=== PATIENT | female | born 1995 | race American Indian/Alaskan Native ===

== ENCOUNTER 2021-05-17 12:32 | Outpatient (CLI) | payer OTHER ==
--- NOTE | 2021-05-17 14:08 | Ultrasound Report ---
ULTRASOUND OBSTETRIC LIMITED ULTRASOUND BIOPHYSICAL PROFILE INDICATION / CLINICAL INFORMATION: non reactive nst in office. COMPARISON: None available. FINDINGS: BREATHING MOVEMENT = 2 GROSS BODY MOVEMENT = 2 TONE = 2 QUALITATIVE AMNIOTIC FLUID VOLUME = 2 TOTAL BIOPHYSICAL SCORE = 8/8 HEART RATE (beats per minute): 125 AMNIOTIC FLUID INDEX (cm) = 6.6 PRESENTATION: Cephalic. ADDITIONAL FINDINGS: None. IMPRESSION: 1. Biophysical Score = 8/8 2. Borderline decreased amniotic fluid index of 6.6 cm Signer Name: Skip Mcdonald MD Signed: 05/17/2021 2:04 PM Workstation Name: [email or web address] ([facility])[id number]
== END 2021-05-17 14:53 | disposition home or self-care (01) ==
LOC: TRG 12:32 → APU 12:34 → TRG 14:53
PROVIDERS: ATTEND Obstetrics & Gynecology
DX: Z34.93 Encounter for supervision of normal pregnancy, unspecified, third trimester (principal); Z3A.40 40 weeks gestation of pregnancy
CPT/HCPCS: 76815; 76819

== ENCOUNTER 2021-05-19 12:02 | Inpatient (IN) | payer OTHER ==
--- NOTE | 2021-05-19 13:18 | Ultrasound Report ---
ULTRASOUND OBSTETRIC LIMITED INDICATION / CLINICAL INFORMATION: JOE. Clinical Gestational Age (GA) in weeks, days: 40, 5 TECHNIQUE: Transabdominal. COMPARISON: Ultrasound dated 05/17/21 FINDINGS: HEART RATE (beats per minute): 106 AMNIOTIC FLUID INDEX (cm) = 4.8 (normal = 7-24 cm) PRESENTATION: Cephalic. ADDITIONAL FINDINGS: None. IMPRESSION: 1. Below normal amniotic fluid index of 4.8 cm, previously 6.6 cm. Signer Name: Lili Cifuentes MD Signed: 05/19/2021 1:13 PM Workstation Name: [id number]
[2021-05-19] MEDS ORDERED: ePHEDrine SULFATE 50 MG/1 ML INJ IV PRN (14:23)
[2021-05-19] MEDS ORDERED: LOPERAMIDE 2 MG CAP PO PRN (14:23)
[2021-05-19] MEDS ORDERED: LIDOCAINE (2%) 20 MG/1 ML VIAL 20 ML MDV INFILTRATI ONE (14:23)
[2021-05-19] MEDS ORDERED: fentaNYL 100 MCG/2 ML INJ IV PRN (14:23)
[2021-05-19] MEDS ORDERED: miSOPROStol 200 MCG TAB PR PRN (14:23)
[2021-05-19] MEDS ORDERED: TERBUTALINE 1 MG/1 ML INJ SUB-Q PRN (14:23)
[2021-05-19] MEDS ORDERED: NalbUPHINE 10 MG/1 ML INJ IV PRN (14:23)
[2021-05-19] MEDS ORDERED: OXYTOCIN 10 UNIT/1 ML INJ IM PRN (14:23)
[2021-05-19] MEDS ORDERED: ACETAMINOPHEN 325 MG TAB PO PRN (14:23)
[2021-05-19] MEDS ORDERED: MINERAL OIL 30 ML ORAL LIQD PO PRN (14:23)
[2021-05-19] MEDS ORDERED: METHYLERGONOVINE MALEATE 0.2 MG/ML VIAL IM PRN (14:23)
[2021-05-19] MEDS ORDERED: ONDANSETRON 4 MG/2 ML INJ IV PRN (14:23)
[2021-05-19] MEDS ORDERED: CARBOPROST TROMETHAMINE 250 MCG/1 ML INJ IM PRN (14:23)
[2021-05-19] MEDS ORDERED: BUTORPHANOL 2 MG/1 ML INJ IV PRN (14:23)
[2021-05-19] MEDS ORDERED: OXYTOCIN DRIP 30 UNITS/500 ML BAG IV SCH (15:00)
--- NOTE | 2021-05-19 15:07 | History and Physical Report ---
History of Present Illness Date of examination: 05/19/21 Date of admission: 05/19/2021 Chief complaint: Oligohydramnios History of present illness: 26 yo, G1 @ 40.5wks, initiated care with [facility] [facility] at 12 weeks gestation. Her has been complicated by anemia, right choroid plexus cyst (co-managed by [facility], not seen on 03/19/21 exam), left breast masses, marijuana use, oligohydramnios and silent carrier alpha-thalassemia. Pt reports to [facility] today for repeat JOE, with results of 4.8cm (previously 6.5cm on 05/17/21). Reports +FM. Denies VB or LOF. Labs: O+, antibody negative; rubella immune; VDRL negative; HIV negative; HSV2 negative; HCV ab negative; GC/Chlamydia negative; MSAFP/multiple markers screen negative; 1hr gtt - 88; GBS negative. Past History Past Medical History: no pertinent history Past Surgical History: no surgical history [place] History: abnormal PAP smear Family/Genetic History: none Social history: single, smoking (marijuana), full code. denies: alcohol abuse, prescription drug abuse, IV drug use - Obstetrical History Expected Date of Delivery: 05/14/21 Actual Gestation: 40 Week(s) 5 Day(s) : 1 Para: 0 Hx # Term Pregnancies: 0 Number of Pregnancies: 0 Spontaneous Abortions: 0 Induced : 0 Number of Living Children: 0 Medications and Allergies Allergies Allergy/AdvReac Type Severity Reaction Status Date / Time No Known Allergies Allergy Unverified 05/17/21 13:15 Active Meds: Active Medications Acetaminophen (Acetaminophen 325 Mg Tab) 650 mg PO Q4H PRN PRN Reason: Pain, Mild (1-3) Butorphanol Tartrate (Butorphanol 2 Mg/1 Ml Inj) 2 mg IV Q2H PRN PRN Reason: Pain , Severe (7-10) Carboprost Tromethamine (Carboprost Tromethamine 250 Mcg/1 Ml Inj) 250 mcg IM ONCE PRN PRN Reason: Uterine Bleeding Ephedrine Sulfate (Ephedrine Sulfate 50 Mg/1 Ml Inj) 10 mg IV Q2M PRN PRN Reason: Hypotension Fentanyl (Fentanyl 100 Mcg/2 Ml Inj) 100 mcg IV Q2H PRN PRN Reason: Pain,Severe (7-10) LABOR PAIN Lactated Ringer's (Lactated Ringers) 1,000 mls @ 125 mls/hr IV DIRECT MEETA Oxytocin/Sodium Chloride (Pitocin/Ns 30 Unit/500ml) 30 units in 500 mls @ 40 mls/hr IV TITR MEETA; Protocol Loperamide HCl (Loperamide 2 Mg Cap) 2 mg PO ONCE PRN PRN Reason: give with Hemabate Methylergonovine Maleate (Methylergonovine Maleate 0.2 Mg/Ml Vial) 0.2 mg IM ONCE PRN PRN Reason: Uterine Bleeding Mineral Oil (Mineral Oil 30 Ml Oral Liqd) 30 ml PO QHS PRN PRN Reason: Constipation Misoprostol (Misoprostol 200 Mcg Tab) 800 mcg PA ONCE PRN PRN Reason: Uterine Bleeding Misoprostol (Misoprostol 25 Mcg Tab) 50 mcg VG Q4H MEETA Stop: 05/20/21 05:01 Nalbuphine HCl (Nalbuphine 10 Mg/1 Ml Inj) 10 mg IV Q2H PRN PRN Reason: Pain, Moderate (4-6) Ondansetron HCl (Ondansetron 4 Mg/2 Ml Inj) 4 mg IV Q8H PRN PRN Reason: Nausea And Vomiting Oxytocin (Oxytocin 10 Unit/1 Ml Inj) 10 unit IM ONCE PRN PRN Reason: Uterine Bleeding Terbutaline Sulfate (Terbutaline 1 Mg/1 Ml Inj) 0.25 mg SUB-Q ONCE PRN PRN Reason: Hyperstimulation/Hypertonicity Review of Systems All systems: negative - Vital Signs Vital signs: Vital Signs Temp Pulse BP 98.6 F 82 101/58 05/19/21 12:30 05/19/21 12:30 05/19/21 12:30 Temp Pulse Resp BP Pulse Ox 98.6 F 82 101/58 05/19/21 12:30 05/19/21 12:32 05/19/21 12:32 - Physical Exam Breasts: Positive: normal Cardiovascular: Regular rate Lungs: Positive: Normal air movement Abdomen: Positive: other (gravid ) Genitourinary (Female): Positive: normal external genitalia, normal perenium Vagina: Positive: normal moisture Uterus: Positive: enlarged (S=D) Extremities: Positive: normal Deep Tendon Reflex Grade: Normal +2 - Obstetrical FHR: category 1 Uterine Contraction Monitor Mode: External Cervical Dilatation: 1 (vertex) Cervical Effacement Percentage: 50 station: -3 Uterine Contraction Pattern: Absent Uterine Tone Measurement Phase: Resting Results All other labs normal. Assessment and Plan - Patient Problems (1) Oligohydramnios in [place] in third trimester Current Visit: Yes Status: Acute Plan to address problem: Admit to L&D Initiate IOL with cytotec 50 mcg po every 4 hrs x 4 doses as tolerated Pain meds as desired per orders Anticipate (2) Anemia Current Visit: Yes Status: Acute Qualifiers: Anemia type: iron deficiency Plan to address problem: Asymptomatic Continue oral iron supplementation PP (3) Alpha thalassemia silent carrier Current Visit: Yes Status: Acute
[2021-05-19] MEDS ORDERED: miSOPROStol 25 MCG TAB VG SCH (17:00)
[2021-05-19] MEDS: LACTATED RINGERS 1,000 ML IV SCH (17:02)
[2021-05-19 17:24] LABS: Hematocrit 32.6 % (30.3-42.9); Hemoglobin 10.7 gm/dl (10.1-14.3); Mean Corpuscular HGB Conc 33 % (30-34); Mean Corpuscular Volume 89 fl (79-97); Platelet Count 193 K/mm3 (140-440); Red Blood Count 3.65 M/mm3 (3.65-5.03); Red Cell Distribution Width 13.2 % (13.2-15.2)
[2021-05-19] MEDS ORDERED: miSOPROStol 100 MCG TAB VG SCH (19:09)
[2021-05-20] MEDS: LACTATED RINGERS 1,000 ML IV SCH ×3 (00:33→10:42)
--- NOTE | 2021-05-20 05:54 | Progress Note ---
Assessment and Plan - Patient Problems (1) Oligohydramnios in [place] in third trimester Current Visit: Yes Status: Acute Plan to address problem: Only one dose of Cytotec given as Laurie not properly showing ctxs Changed to external toco for accurate ctx monitoring Attempted to place barton balloon but was unsuccessful Initiate Pitocin titration as tolerated Pain meds as desired per orders Anticipate (2) Anemia Current Visit: Yes Status: Acute Qualifiers: Anemia type: iron deficiency Plan to address problem: Asymptomatic Continue oral iron supplementation PP (3) Alpha thalassemia silent carrier Current Visit: Yes Status: Acute Subjective - Subjective Date of service: 05/20/21 Principal diagnosis: IOL secondary to oligohydramnios Interval history: 26 yo, G1 @ 40.5wks, initiated care with [place] [facility] at 12 weeks gestation. Her has been complicated by anemia, right choroid plexus cyst (co-managed by [facility], not seen on 03/19/21 exam), left breast masses, marijuana use, oligohydramnios and silent carrier alpha-thalassemia. Pt reports to [facility] today for repeat JOE, with results of 4.8cm (previously 6.5cm on 05/17/21). Reports +FM. Denies VB or LOF. Labs: O+, antibody negative; rubella immune; VDRL negative; HIV negative; HSV2 negative; HCV ab negative; GC/Chlamydia negative; MSAFP/multiple markers screen negative; 1hr gtt - 88; GBS negative. Patient reports: movement normal, contractions ("I don't feel them"), no new complaints, no loss of fluid, no vaginal bleeding Objective - Vital Signs Vital Signs: Vital Signs - 12hr 05/19/21 05/19/21 05/19/21 17:52 17:57 18:02 Pulse Rate 70 72 74 Blood Pressure O2 Sat by Pulse 99 99 99 Oximetry 05/19/21 05/19/21 05/19/21 18:07 18:12 18:17 Pulse Rate 76 71 71 Blood Pressure O2 Sat by Pulse 98 100 98 Oximetry 05/19/21 05/19/21 05/19/21 18:22 18:27 18:32 Pulse Rate 83 91 H 79 Blood Pressure O2 Sat by Pulse 99 99 99 Oximetry 05/19/21 05/19/21 05/19/21 18:37 18:42 18:47 Pulse Rate 74 77 75 Blood Pressure O2 Sat by Pulse 98 99 99 Oximetry 05/19/21 05/19/21 05/19/21 18:52 18:57 19:02 Pulse Rate 76 77 85 Blood Pressure O2 Sat by Pulse 99 98 99 Oximetry 05/19/21 05/19/21 05/19/21 19:07 19:12 19:17 Pulse Rate 72 80 86 Blood Pressure O2 Sat by Pulse 99 100 99 Oximetry 05/19/21 05/19/21 05/19/21 19:22 19:27 19:32 Pulse Rate 77 79 96 H Blood Pressure O2 Sat by Pulse 99 99 100 Oximetry 05/19/21 05/19/21 05/19/21 19:37 19:42 19:47 Pulse Rate 81 85 86 Blood Pressure O2 Sat by Pulse 100 99 100 Oximetry 05/19/21 05/19/21 05/19/21 19:52 19:57 20:02 Pulse Rate 89 81 106 H Blood Pressure O2 Sat by Pulse 99 100 100 Oximetry 05/19/21 05/19/21 05/19/21 20:07 20:12 20:17 Pulse Rate 74 74 85 Blood Pressure O2 Sat by Pulse 100 100 99 Oximetry 05/19/21 05/19/21 05/19/21 20:22 20:27 20:32 Pulse Rate 91 H 79 85 Blood Pressure O2 Sat by Pulse 99 99 99 Oximetry 05/19/21 05/19/21 05/19/21 20:39 20:44 20:49 Pulse Rate 76 83 77 Blood Pressure O2 Sat by Pulse 100 100 99 Oximetry 05/19/21 05/19/21 05/19/21 20:54 20:59 21:04 Pulse Rate 90 81 85 Blood Pressure O2 Sat by Pulse 99 100 99 Oximetry 05/19/21 05/19/21 05/19/21 21:09 21:14 21:19 Pulse Rate 79 79 76 Blood Pressure O2 Sat by Pulse 99 99 100 Oximetry 05/19/21 05/19/21 05/19/21 21:24 21:29 21:34 Pulse Rate 74 76 90 Blood Pressure O2 Sat by Pulse 99 99 99 Oximetry 05/19/21 05/19/21 05/19/21 21:39 21:44 21:49 Pulse Rate 79 78 88 Blood Pressure O2 Sat by Pulse 99 100 99 Oximetry 05/19/21 05/19/21 05/19/21 21:54 21:59 22:04 Pulse Rate 77 93 H 79 Blood Pressure O2 Sat by Pulse 99 100 99 Oximetry 05/19/21 05/19/21 05/19/21 22:09 22:14 22:19 Pulse Rate 78 74 85 Blood Pressure O2 Sat by Pulse 99 99 99 Oximetry 05/19/21 05/19/21 05/19/21 22:24 22:29 22:34 Pulse Rate 81 73 78 Blood Pressure O2 Sat by Pulse 99 99 99 Oximetry 05/19/21 05/19/21 05/19/21 22:39 22:44 22:49 Pulse Rate 90 77 83 Blood Pressure O2 Sat by Pulse 100 100 100 Oximetry 05/19/21 05/19/21 05/19/21 22:54 22:59 23:04 Pulse Rate 73 78 79 Blood Pressure O2 Sat by Pulse 100 100 100 Oximetry 05/19/21 05/19/21 05/19/21 23:09 23:14 23:19 Pulse Rate 80 71 84 Blood Pressure O2 Sat by Pulse 99 100 99 Oximetry 05/19/21 05/19/21 05/19/21 23:24 23:29 23:34 Pulse Rate 78 84 76 Blood Pressure O2 Sat by Pulse 99 99 100 Oximetry 05/19/21 05/19/21 05/19/21 23:39 23:44 23:49 Pulse Rate 79 67 74 Blood Pressure O2 Sat by Pulse 99 99 99 Oximetry 05/19/21 05/19/21 05/20/21 23:54 23:59 00:04 Pulse Rate 68 63 65 Blood Pressure O2 Sat by Pulse 99 99 98 Oximetry 05/20/21 05/20/21 05/20/21 00:09 00:14 00:19 Pulse Rate 72 70 70 Blood Pressure O2 Sat by Pulse 99 100 100 Oximetry 05/20/21 05/20/21 05/20/21 00:52 00:57 01:02 Pulse Rate 65 69 89 Blood Pressure O2 Sat by Pulse 99 99 99 Oximetry 05/20/21 05/20/21 05/20/21 01:07 01:12 01:17 Pulse Rate 75 67 67 Blood Pressure O2 Sat by Pulse 100 100 99 Oximetry 05/20/21 05/20/21 05/20/21 01:22 01:27 01:32 Pulse Rate 64 65 69 Blood Pressure O2 Sat by Pulse 100 100 99 Oximetry 05/20/21 05/20/21 05/20/21 01:37 01:42 01:44 Pulse Rate 66 69 58 L Blood Pressure 122/71 O2 Sat by Pulse 99 98 Oximetry 05/20/21 05/20/21 05/20/21 01:47 01:52 01:57 Pulse Rate 68 67 67 Blood Pressure O2 Sat by Pulse 100 99 98 Oximetry 05/20/21 05/20/21 05/20/21 02:02 02:07 02:11 Pulse Rate 60 63 65 Blood Pressure 111/64 O2 Sat by Pulse 100 100 Oximetry 05/20/21 05/20/21 05/20/21 02:12 02:17 02:22 Pulse Rate 66 84 82 Blood Pressure O2 Sat by Pulse 100 99 99 Oximetry 05/20/21 05/20/21 05/20/21 02:27 02:32 02:37 Pulse Rate 63 64 61 Blood Pressure O2 Sat by Pulse 99 100 100 Oximetry 05/20/21 05/20/21 05/20/21 02:42 02:47 02:52 Pulse Rate 65 63 64 Blood Pressure O2 Sat by Pulse 99 98 98 Oximetry 05/20/21 05/20/21 05/20/21 02:57 03:02 03:07 Pulse Rate 62 63 73 Blood Pressure O2 Sat by Pulse 98 98 99 Oximetry 05/20/21 05/20/21 05/20/21 03:14 03:19 03:24 Pulse Rate 75 68 60 Blood Pressure O2 Sat by Pulse 100 99 99 Oximetry 05/20/21 05/20/21 05/20/21 03:29 03:34 03:39 Pulse Rate 57 L 60 62 Blood Pressure O2 Sat by Pulse 99 99 98 Oximetry 05/20/21 05/20/21 05/20/21 03:44 03:49 03:54 Pulse Rate 59 L 60 59 L Blood Pressure O2 Sat by Pulse 99 99 98 Oximetry 05/20/21 05/20/21 05/20/21 03:59 04:04 04:09 Pulse Rate 67 60 59 L Blood Pressure O2 Sat by Pulse 100 100 100 Oximetry 05/20/21 05/20/21 05/20/21 04:14 04:19 04:24 Pulse Rate 57 L 58 L 58 L Blood Pressure O2 Sat by Pulse 100 100 100 Oximetry 05/20/21 05/20/21 05/20/21 04:29 04:34 04:47 Pulse Rate 60 58 L 62 Blood Pressure O2 Sat by Pulse 100 100 87 Oximetry 05/20/21 05/20/21 05/20/21 04:52 04:57 05:02 Pulse Rate 63 58 L 61 Blood Pressure O2 Sat by Pulse 100 100 100 Oximetry 05/20/21 05/20/21 05/20/21 05:07 05:12 05:17 Pulse Rate 70 71 77 Blood Pressure O2 Sat by Pulse 100 100 100 Oximetry 05/20/21 05/20/21 05/20/21 05:22 05:27 05:32 Pulse Rate 90 63 63 Blood Pressure O2 Sat by Pulse 99 100 100 Oximetry 05/20/21 05/20/21 05:37 05:42 Pulse Rate 62 75 Blood Pressure O2 Sat by Pulse 100 99 Oximetry - Exam Breasts: deferred Cardiovascular: Regular rate Lungs: Normal air movement FHR: category 1 Uterine Contraction Monitor Mode: External Cervical Dilatation: 1.5 (vertex) Cervical Effacement Percentage: 60 station: -3 Uterine Contraction Frequency (min): 3-6 Uterine Contraction Pattern: Irregular Uterine Tone Measurement Phase: Resting Uterine Contraction Intensity: Mild - Labs Labs: Abnormal Labs 05/19/21 16:30 WBC 13.7 H Laboratory Results - last 24 hr 05/19/21 05/19/21 16:30 16:30 WBC 13.7 H RBC 3.65 Hgb 10.7 Hct 32.6 MCV 89 MCH 29 MCHC 33 RDW 13.2 Plt Count 193 Blood Type O POSITIVE Antibody Screen Negative
[2021-05-20] MEDS ORDERED: OXYTOCIN DRIP 30 UNITS/500 ML BAG IV SCH ×3 (06:00→17:00)
[2021-05-20] MEDS ORDERED: METOCLOPRAMIDE 10 MG/2 ML INJ IV ONE (16:00)
[2021-05-20] MEDS ORDERED: FAMOTIDINE 20 MG/2 ML INJ IV ONE (16:00)
[2021-05-20] MEDS ORDERED: ceFAZolin/Water 2 GM/20 ML 2 GM/20 ML SYRINGE IV NR (16:00)
[2021-05-20] MEDS ORDERED: BICITRA ORAL LIQD 30ML PO ONE (16:00)
[2021-05-20] MEDS ORDERED: LACTATED RINGERS 1,000 ML IV SCH (16:00)
[2021-05-20] MEDS ORDERED: ONDANSETRON 4 MG/2 ML INJ IV PRN (16:04)
[2021-05-20] MEDS ORDERED: NALOXONE 0.4 MG/1 ML INJ IV PRN ×2 (16:04→16:50)
[2021-05-20] MEDS ORDERED: PROMETHAZINE 25 MG TAB PO PRN (16:04)
[2021-05-20] MEDS ORDERED: NalbUPHINE 10 MG/1 ML INJ IV PRN (16:04)
[2021-05-20] MEDS ORDERED: HYDROmorphone 1 MG/1 ML INJ IV PRN (16:04)
[2021-05-20] MEDS ORDERED: PROMETHAZINE 25 MG RECT SUPP PR PRN (16:04)
[2021-05-20] MEDS ORDERED: diphenhydrAMINE 50 MG/ML VIAL IV PRN (16:04)
[2021-05-20] MEDS ORDERED: KETOROLAC 30 MG/1 ML INJ ONE (16:15)
[2021-05-20] MEDS ORDERED: BUPIVACAINE/PF (0.5%) 5 MG/1 ML 30 ML VIAL INFILTRATI ONE (16:15)
[2021-05-20] MEDS ORDERED: ONDANSETRON 4 MG/2 ML INJ ONE ×2 (16:15)
[2021-05-20] MEDS ORDERED: dexAMETHasone 20 MG/5 ML VIAL ONE (16:15)
--- NOTE | 2021-05-20 16:34 | Anesthesia Consultation ---
Anesthesia Consult and Med Hx Date of service: 05/20/21 - Airway Anesthetic Teeth Evaluation: Good ROM Head & Neck: Adequate Mental/Hyoid Distance: Adequate Mallampati Class: Class II Intubation Access Assessment: Probably Good - Pulmonary Exam CTA: Yes - Cardiac Exam Cardiac Exam: RRR - Pre-Operative Health Status ASA Pre-Surgery Classification: ASA2 Proposed Anesthetic Plan: Spinal Nerve Block: TAP - Pulmonary Hx Smoking: No Hx Asthma: No Hx Sleep Apnea: No - Cardiovascular System Hx Hypertension: No Hx Heart Attack/AMI: No Hx Angina: No - Central Nervous System Hx Seizures: No Hx Psychiatric Problems: No - Gastrointestinal Hx Gastroesophageal Reflux Disease: No - Endocrine Hx Renal Disease: No Hx Liver Disease: No Hx Insulin Dependent Diabetes: No Hx Non-Insulin Dependent Diabetes: No Hx Hypothyroidism: No Hx Hyperthyroidism: No - Hematic Hx Anemia: No Hx Sickle Cell Disease: No - Other Systems Hx Alcohol Use: No
--- NOTE | 2021-05-20 16:34 | Anesthesia Day of Surgery ---
Anesthesia Day of Surgery - Day of Surgery Patient Examined: Yes Patient H&P Reviewed: Yes Patient is NPO: Yes Beta Blockers: No Cardiac Clearance: No Pulmonary Clearance: No David's Test: N/A
--- NOTE | 2021-05-20 16:48 | Procedure Note ---
OB Delivery Note - Delivery Date of Delivery: 05/20/21 Surgeon: DEUCE HENRY Estimated blood loss: other (600 mL) - Section Preop diagnosis: nonreassuring FHR tracing Postop diagnosis: same section procedure: section, primary low transverse Disposition: PACU Complications: none - A at 1 minute: 8 at 5 minutes: 9 Infant Gender: Male (Weight 7 pounds 4 ounces)
--- NOTE | 2021-05-20 16:48 | Operative Report ---
Operative Report Operative Report: Date of surgery: May 20, 2021 Preoperative diagnosis: at 40 for 6 weeks; nonreassuring heart rate tracing; remote from delivery; oligohydramnios Postoperative diagnosis: Same as above Procedure: Primary low transverse delivery Surgeon: Sandra Live M.D. Anesthesia: Regional Estimated blood loss:600ml IV fluids: 1300 mL Urine output: 150 mL Findings: Liveborn male with Apgars of 8 and 9 weight 7 pounds 4 ounces Indications: 26-year-old G1, P0 at 40+6 weeks who presents for induction of labor secondary to oligohydramnios. The patient's intrapartum course is complicated by nonreassuring heart rate tracing with the use of Pitocin augmentation. Procedure: The patient was taken to the operating room and given regional anesthesia without complication. She was prepped and draped in a normal sterile fashion. A Pfannenstiel skin incision was made down to layer the fascia which was nicked in the midline extended laterally with the Bovie cautery. The superior aspect of the rectus fascia was grasped with Anurag clamps x2 and the rectus muscles off sharply. This was done in inferior fashion as well. The rectus muscle midline and peritoneum entered bluntly. An Emerson retractor was then inserted. A bladder blade was placed. The vesicouterine peritoneum was then entered sharply with Metzenbaum scissors. A bladder flap was created digitally. A low transverse uterine incision was then made and extended digitally. There was clear fluid upon entry into the uterine cavity. The head was delivered through the incision with fundal pressure. The cord was clamped and cut x2 and infant was passed off to pediatrics. The placenta was then manually extracted. The uterus was then exteriorized and cleared of clots and debris. The uterine incision was then closed in a running locked fashion with 0 Vicryl additional imbricating stitch was applied for 2 layer closure. The serosa was then reapproximated with 3-0 Vicryl. The posterior cul-de-sac was then copiously irrigated. The uterus was replaced back into the abdomen and pelvis were the gutters were then irrigated. The Emerson retractor was then removed. The peritoneum was then reapproximated with 3-0 Vicryl incorporating the rectus muscle. The fascia was then closed with 0 Vicryl in a running fashion. The skin was then reapproximated with 3-0 Monocryl on a Boris needle subcuticular fashion. Steri-Strips to place across the incision and a Crede procedures performed at the end of the surgery. A pressure dressing was applied to the incision. The surgery productive of a liveborn male with Apgars of 8 and 9 weight 7 pounds 4 ounces. The patient was taken to the recovery room in stable condition. All sponge laps and needle counts correct x2.
[2021-05-20] MEDS ORDERED: LANOLIN/ZINC/DIMETHICONE (LANSINOH) 7 GM TP PRN (16:50)
[2021-05-20] MEDS ORDERED: IBUPROFEN 600 MG TAB PO PRN (16:50)
[2021-05-20] MEDS ORDERED: MORPHINE 4 MG/1 ML INJ IV PRN (16:50)
[2021-05-20] MEDS ORDERED: WITCH HAZEL/ GLYCERIN PAD TP PRN (16:50)
[2021-05-20] MEDS ORDERED: ceFAZolin/STERILE WATER 2 GM/20 ML SYRINGE IV ONE (17:00)
[2021-05-20] MEDS ORDERED: ePHEDrine SULFATE 50 MG/1 ML INJ ONE (17:05)
[2021-05-20] MEDS ORDERED: LACTATED RINGERS 1,000 ML ONE (17:13)
--- NOTE | 2021-05-20 17:16 | Progress Note ---
Spinal Anesthesia Block - Spinal Anesthesia Block Start Time: 16:50 Stop Time: 17:00 Performed by:: CAREN LEMUS Procedure: Spinal anesthesia block is being performed for [C/S]. H&P, labs have been reviewed. Patient's questions and concerns have been answered. Informed consent has been performed. Timeout has was performed. Patient in sitting position on side of bed. Sterile prep and drape was performed. 3 mL 1% lidocaine skin wheal at L [3]-L [4]. Needle introducer advanced. 25-gauge spinal needle advanced, [+] CSF [-] blood. [Marcaine 10mg and Precedex 5mcg] Spinal dose was given. All needles removed. Patient tolerated procedure well.
[2021-05-21] MEDS ORDERED: ONDANSETRON 4 MG/2 ML INJ IV PRN (00:20)
[2021-05-21] MEDS: KETOROLAC 30 MG/1 ML INJ IV PRN ×2 (00:35→06:01)
[2021-05-21] MEDS: D5W/LACTATED RINGERS 1,000 ML IV SCH ×2 (04:16→11:22)
[2021-05-21 10:05] LABS: Hematocrit 20.4 % (30.3-42.9); Hemoglobin 6.6 gm/dl (10.1-14.3)
[2021-05-21] MEDS: oxyCODONE /ACETAMINOPHEN 5-325MG TAB PO PRN ×2 (11:21→23:53)
--- NOTE | 2021-05-21 16:14 | Post Anesthesia Evaluation ---
- Post Anesthesia Evaluation Patient Participated: Yes Airway Patent: Yes Stable Respiratory Function: Yes Nausea/Vomiting: No Temp > 96.8F: Yes Pain Manageable: Yes Adequeate Hydration: Yes Anesthesia Complications: No Block Receding Appropriately: Yes
[2021-05-21] MEDS ORDERED: MORPHINE 2 MG/1 ML INJ IV PRN (16:53)
[2021-05-21] MEDS: KETOROLAC 30 MG/1 ML INJ IV SCH (18:45)
[2021-05-22] MEDS: KETOROLAC 30 MG/1 ML INJ IV SCH ×2 (00:30→05:38)
--- NOTE | 2021-05-22 06:10 | Progress Note ---
Assessment and Plan A: POD#2 s/p primary section Acute blood loss anemia P: Continue routine postop care Monitor for symptoms of anemia Subjective - Subjective Date of service: 05/22/21 Principal diagnosis: s/p primary cesaren, acute blood loss anemia Interval history: Pt without complaints. Patient reports: appetite normal, pain well controlled, flatus, ambulating normally, no dizzy ambulation, no bowel movement : doing well Objective - Vital Signs Latest vital signs: Vital Signs Temp Pulse Resp BP BP Pulse Ox Pulse Ox 05/21/21 23:34 98.8 F 87 20 110/68 100 05/21/21 20:50 100 05/21/21 15:30 98.5 F 85 18 112/58 05/21/21 08:30 97.6 F 78 18 95/57 05/21/21 08:00 100 Intake and Output 05/21/21 05/21/21 05/22/21 14:59 22:59 06:59 Intake Total 1247.5 440 360 Output Total 900 800 Balance 347.5 -360 360 Intake: IV 887.5 D5lr 1,000 ml @ 125 mls/ 887.5 hr IV DIRECT MEETA Rx#: [id number] Oral 360 440 Intake, Free Water 360 Output: Urine 900 800 Void 900 800 Other: Total, Intake Amount 360 120 Total, Output Amount 900 800 # Voids Void 2 1 1 - Exam Breasts: Present: deferred Abdomen: Present: soft Uterus: Present: fundal height at umbilicus Extremities: Present: normal Incision: Present: dressed - Labs Labs: Abnormal lab results 05/21/21 Range/Units 09:29 Hgb 6.6 L D (10.1-14.3) gm/dl Hct 20.4 L D (30.3-42.9) %
[2021-05-22 06:25] LABS: Hematocrit 17.2 % (30.3-42.9); Hemoglobin 5.6 gm/dl (10.1-14.3)
[2021-05-22] MEDS ORDERED: SODIUM CHLORIDE 0.9% 500 ML 500 ML IV ONE (06:50)
--- NOTE | 2021-05-22 06:53 | Event Note ---
Date: 05/22/21 On-call MD called by RN regarding repeat hemoglobin of 5.6. Abdomen soft with minimal lochia. CT abdomen/pelvis ordered to exclude hematoma. Type and cross and transfuse 2 units of PRBCs. Continue to monitor clinically.
[2021-05-22] MEDS ORDERED: TETANUS,DIPH,PERTUSS(ACELL) VACCINE 0.5 ML SYRINGE IM ONE (08:00)
[2021-05-22 09:29] LABS: Alanine Aminotransferase 7 units/L (7-56); Albumin 2.5 g/dL (3.9-5); Blood Urea Nitrogen 6 mg/dL (7-17); Calcium 8.2 mg/dL (8.4-10.2); Hemolysis Index 0
[2021-05-22 09:31] LABS: BUN/Creatinine Ratio 12
[2021-05-22] MEDS: FERROUS SULFATE 325 MG TAB PO SCH (10:12)
[2021-05-22] MEDS: DOCUSATE SODIUM 100 MG CAP PO SCH (10:35)
--- NOTE | 2021-05-22 11:26 | Cat Scan Report ---
CT ABDOMEN AND PELVIS WITH CONTRAST INDICATION / CLINICAL INFORMATION: s/p on 05/20/21, decreasing hemoglobin OMNI 300 100 ML. TECHNIQUE: Axial CT images were obtained through the abdomen and pelvis after IV contrast. All CT sc ans at this location are performed using CT dose reduction for ALARA by means of automated exposure c ontrol. COMPARISON: None available. FINDINGS: LOWER CHEST: Trace bilateral pleural effusions. LIVER: Normal aside from a tiny cyst adjacent to the falciform ligament. GALLBLADDER: No significant abnormality. BILE DUCTS: No significant abnormality. PANCREAS: No significant abnormality. SPLEEN: No significant abnormality. ADRENALS: No significant abnormality. RIGHT KIDNEY / URETER: No significant abnormality. LEFT KIDNEY / URETER: No significant abnormality. STOMACH / SMALL BOWEL: No significant abnormality. COLON: No significant abnormality. APPENDIX: Not visualized. PERITONEUM: There is air in the abdomen which is expected after section. There is a 5.1 x 1. 6 cm collection anterior to the urinary bladder which likely represents hematoma. LYMPH NODES: No significant adenopathy. AORTA / ARTERIES: No significant abnormality. IVC / VEINS: No significant abnormality. URINARY BLADDER: Small amount of gas, likely secondary to recent Escoto placement. REPRODUCTIVE ORGANS: The uterus is enlarged and edematous and contains gas and small amount of blood in the endometrial cavity, expected after recent section. No definite bladder flap hematoma. ADDITIONAL FINDINGS: The inferior rectus abdominis muscles are enlarged measuring 13.0 x 4.2 x 9.4 cm compatible with intramuscular hematoma. No active extravasation is seen from the inferior epigastric arteries.. There is expected postoperative gas in the subcutaneous tissues and fascial planes. SKELETAL SYSTEM: No significant abnormality. IMPRESSION: 1. The inferior rectus abdominous muscles are enlarged concerning for intramuscular rectus abdominis hematoma. No evidence of active extravasation. There is additional intraperitoneal hematoma anterior to the urinary bladder as above. No significant bladder flap hematoma seen. 2. Postsurgical changes from recent delivery as described above. Signer Name: Elliott Rivera MD Signed: 05/22/2021 11:21 AM Workstation Name: [email or web address]
[2021-05-22] MEDS ORDERED: SODIUM CHLORIDE 0.9% 500 ML 500 ML ONE ×2 (13:03→19:33)
--- NOTE | 2021-05-22 13:16 | Event Note ---
Date: 05/22/21 CT scan with evidence of rectus sheath hematoma; consistent with greater than expected drop in hemoglobin and hematocrit postoperatively. Continue supportive care. Continue plan to transfuse 2 units of packed red blood cells. Coagulation studies are pending and were collected prior to transfusion.
[2021-05-22 13:35] LABS: INR 0.9 (0.87-1.13)
[2021-05-22 13:36] LABS: Partial Thromboplastin Time 24.7 Sec. (24.2-36.6)
[2021-05-22] MEDS ORDERED: diphenhydrAMINE 25 MG CAP PO ONE ×2 (13:58→14:03)
[2021-05-22] MEDS ORDERED: ACETAMINOPHEN 325 MG TAB ONE (13:58)
[2021-05-22] MEDS ORDERED: ACETAMINOPHEN 325 MG TAB PO ONE (15:00)
[2021-05-23] MEDS: oxyCODONE /ACETAMINOPHEN 5-325MG TAB PO PRN ×2 (00:22→05:48)
[2021-05-23] MEDS: DOCUSATE SODIUM 100 MG CAP PO SCH ×2 (00:22→10:03)
[2021-05-23] MEDS: FERROUS SULFATE 325 MG TAB PO SCH ×2 (00:22→10:03)
[2021-05-23] MEDS ORDERED: TETANUS,DIPH,PERTUSS(ACELL) VACCINE 0.5 ML SYRINGE IM ONE (06:00)
[2021-05-23 06:09] LABS: Hematocrit 24.6 % (30.3-42.9); Hemoglobin 8.3 gm/dl (10.1-14.3)
--- NOTE | 2021-05-23 08:41 | Discharge Summary ---
Providers - Providers Date of Admission: 05/19/21 14:23 Date of discharge: 05/23/21 Attending physician: DEUCE HENRY Primary care physician: SERA RODRIGUEZ Hospitalization Reason for admission: induction of labor Delivery: Procedure: primary low transverse Episiotomy: none Laceration: none Incision: intact (steri-strips intact, abdominal binder in place) Other procedures: none complications: transfusion (2 units of PRBCs received) Discharge diagnosis: IUP at term delivered [place] baby: male Hospital course: 6 yo, G1 @ 40.5wks, initiated care with [place] [facility] customer care coordinator at 12 weeks gestation. Her has been complicated by anemia, right choroid plexus cyst (co-managed by MFM, not seen on 03/19/21 exam), left breast masses, marijuana use, oligohydramnios and silent carrier alpha-thalassemia. Pt reports to [facility] today for repeat JOE, with results of 4.8cm (previously 6.5cm on 05/17/21). Reports +FM. Denies VB or LOF. The patient's intrapartum course is complicated by nonreassuring heart rate tracing with the use of Pitocin augmentation. Condition at discharge: Stable Disposition: 01 HOME / SELF CARE / HOMELESS - Discharge Diagnoses (1) Anemia Status: Acute Qualifiers: Anemia type: other cause Other causes of anemia: acute posthemorrhagic Qualified Code(s): D62 - Acute posthemorrhagic anemia Comment: Asymptomatic Increase iron rich foods into diet Continue daily oral iron supplementation as directed (2) Alpha thalassemia silent carrier Status: Acute Plan - Discharge Medications Prescriptions: Docusate Sodium [Colace] 100 mg PO BID PRN #60 capsule PRN Reason: Constipation Ferrous Sulfate [Feosol 325 MG tab] 325 mg PO TID #90 tablet Ibuprofen [Motrin] 600 mg PO Q6H PRN #30 tablet PRN Reason: Pain oxyCODONE /ACETAMINOPHEN [Percocet 5/325] 1 tab PO Q6HR PRN #30 tablet PRN Reason: Pain - Provider Discharge Summary Activity: routine, no sex for 6 weeks, no heavy lifting 4 weeks, no strenuous exercise Diet: other (Iron rich diet) Instructions: routine Additional instructions: [] Smoking cessation referral if applicable(refer to patient education folder for contact #) [] Refer to [facility] Booklet Call your doctor immediately for: * Fever > 100.5 * Heavy vaginal bleeding ( >1 pad per hour) * Severe persistent headache * Shortness of breath * Reddened, hot, painful area to leg or breast * Drainage or odor from incision. * Keep incision clean and dry at all times and follow doctor's instructions regarding bathing/showering - Follow up plan Follow up: SERA RODRIGUEZ MD [Primary Care Provider] - 14 Days
[2021-05-23 14:11] VITALS: BP 138/85
== END 2021-05-23 14:15 | disposition home or self-care (01) | DRG 765 ==
LOC: TRG 12:02 → APU 12:05 → LD 14:23 → TRG 14:23 → LD 16:50 → APU 05-20 16:53 → OB 05-20 20:27
PROVIDERS: ADMIT Obstetrics & Gynecology; ATTEND Obstetrics & Gynecology
PROC: 10D00Z1 Extraction of Products of Conception, Low, Open Approach (ICD-10-PCS; principal; 2021-05-20)
PROC: 30233N1 Transfusion of Nonautologous Red Blood Cells into Peripheral Vein, Percutaneous Approach (ICD-10-PCS; 2021-05-22)
PROC: 3E0234Z Introduction of Serum, Toxoid and Vaccine into Muscle, Percutaneous Approach (ICD-10-PCS; 2021-05-23)
DX: O41.03X0 Oligohydramnios, third trimester, not applicable or unspecified (principal); D62 Acute posthemorrhagic anemia; O76 Abnormality in fetal heart rate and rhythm complicating labor and delivery; Z37.0 Single live birth; D56.3 Thalassemia minor; Z3A.40 40 weeks gestation of pregnancy; O99.02 Anemia complicating childbirth; Z20.822 Contact with and (suspected) exposure to COVID-19; Z23 Encounter for immunization
CPT/HCPCS: 36415; 59025; 74177; 76815; 76819; 80053; 85014; 85018; 85027; 85610; 85730; 86850; 86900; 86901; 86920; 90471; 90715; 96360; G0378; J0690; J1100; J1885; J2270; J2405; J2590; J2765; J3490; J7120; J7121; P9016; Q9967; U0003

== ENCOUNTER 2022-02-15 14:13 | Emergency (ER) | payer OTHER ==
[2022-02-15 16:21] VITALS: BP 109/56
== END 2022-02-16 11:30 ==
LOC: ED 14:13
DX: Z04.1 Encounter for examination and observation following transport accident (principal); Z53.21 Procedure and treatment not carried out due to patient leaving prior to being seen by health care provider; V89.2XXA Person injured in unspecified motor-vehicle accident, traffic, initial encounter; Y93.89 Activity, other specified; Y92.89 Other specified places as the place of occurrence of the external cause; Y99.8 Other external cause status